=== PATIENT | female | born 1965 | race Caucasian/White ===

== ENCOUNTER 2023-12-24 08:01 | Emergency (ER) | payer BC, OTHER ==
[2023-12-24] MEDS ORDERED: METOCLOPRAMIDE HCL INJECTION 10 MG/2 ML VIAL ONE (08:31)
[2023-12-24] MEDS ORDERED: ACETAMINOPHEN INJECTION 100 ML IVPB ONE (08:32)
[2023-12-24] MEDS ORDERED: PANTOPRAZOLE SODIUM 40 MG VIAL ONE (08:32)
[2023-12-24 08:34] VITALS: RESP 18; BMI 26.6
[2023-12-24] MEDS: LACTATED RINGERS SOLUTION 1000 ML INFUS.BAG IV ONE (08:45)
[2023-12-24] MEDS: ACETAMINOPHEN 1000 MG/100 ML BAG IVPB ONE (08:50)
[2023-12-24] MEDS: PANTOPRAZOLE SODIUM 40 MG VIAL IVPUSH ONE (08:50)
[2023-12-24] MEDS: METOCLOPRAMIDE HCL INJECTION 10 MG/2 ML VIAL IVPUSH ONE (08:50)
[2023-12-24 09:08] LABS: BASO % 0.2 % (0-2.0); EOS % 0.8 % (0-4.5); HEMATOCRIT 41.5 % (32.4-45.2); HEMOGLOBIN 14.2 GM/dL (10.7-15.3); LYMPH % 21.2 % (8-40); MCH 29.6 pg (25.7-33.7); MCHC 34.2 g/dl (32.0-36.0); MEAN CELL VOLUME 86.5 fl (80-96); MEAN PLT VOLUME 8.5 fl (7.5-11.1); NEUT % 72.8 % (42.8-82.8); PLATELET COUNT 223 10^3/uL (134-434); RDW 13.5 % (11.6-15.6); WHITE BLOOD COUNT 5.1 K/mm3 (4.0-10.0)
[2023-12-24 09:17] LABS: INR 1.03 (0.83-1.09); PROTHROMBIN TIME (PATIENT) 11.6 SEC (9.7-13.0)
[2023-12-24 09:20] LABS: ACTIVATED PTT 35.4 SECONDS (25.2-36.5)
[2023-12-24 09:25] LABS: POTASSIUM 3.8 mmol/L (3.5-5.1)
[2023-12-24 09:27] LABS: BLOOD UREA NITROGEN 15.8 mg/dL (7-18)
[2023-12-24 09:31] LABS: CREATININE 0.7 mg/dL (0.55-1.3)
[2023-12-24 09:32] LABS: BILIRUBIN,TOTAL 0.5 mg/dL (0.2-1); TOT PROT 7.4 g/dl (6.4-8.2)
[2023-12-24 10:37] VITALS: BP 147/78; PULSE 67; TEMP 98
== END 2023-12-24 10:39 | disposition home or self-care (01) ==
LOC: JERFT 08:01
PROC: 3E033NZ Introduction of Analgesics, Hypnotics, Sedatives into Peripheral Vein, Percutaneous Approach (ICD-10-PCS; principal; 2023-12-24)
PROC: 3E033GC Introduction of Other Therapeutic Substance into Peripheral Vein, Percutaneous Approach (ICD-10-PCS; 2023-12-24)
PROC: 3E033GC Introduction of Other Therapeutic Substance into Peripheral Vein, Percutaneous Approach (ICD-10-PCS; 2023-12-24)
DX: R51.9 Headache, unspecified (principal); K92.0 Hematemesis; R11.10 Vomiting, unspecified; K29.21 Alcoholic gastritis with bleeding
CPT/HCPCS: 36415; 71046-TC-FY; 80053; 83690; 83735; 84484; 85025; 85610; 85730; 86850; 86900; 86901; 93005; 93010; 99285-25; J0131